=== PATIENT | female | born 1950 | race Caucasian/White ===

== ENCOUNTER 2019-11-16 01:11 | Day surgery (SDC) | payer MEDICARE, SELFPAY ==
[2019-11-13 13:35] VITALS: BMI 42.6
--- NOTE | 2019-11-15 11:18 | WPDANESEPP ---
Anes - Eval Pre Procedure Procedure: Operation Date: 11/16/19 07:30 Proposed Procedures p Esophagogastroduodenoscopy & Screening Colonoscopy - Rajiv Nails MD Date/Time: 11/15/19 11:18 Pre Op Diagnosis: Hx Colon Polyps/ Gerd Patient Data Age: 69 Gender: F Height: 1.61 m Weight: 111 kg Allergies Allergy/AdvReac Type Severity Reaction Status Date / Time lisinopril Allergy Severe COUGH Verified 11/13/19 13:24 MARIXA Inhibitors Allergy Unknown cough Verified 11/13/19 13:24 Penicillins Allergy Unknown Skin Verified 11/13/19 13:24 Reaction Home Medications Medication Instructions Recorded Confirmed Type levothyroxine 50 mcg tablet 50 mcg PO DAILY #90 tablet 06/08/19 11/13/19 Rx cholecalciferol (vitamin D3) 1,250 50,000 unit PO WEEKLY 07/17/19 11/13/19 History mcg (50,000 unit) capsule hydrocodone 5 mg-acetaminophen 325 1 tablet PO Q8H PRN 07/17/19 11/13/19 History mg tablet losartan 25 mg tablet 25 mg PO DAILY 07/17/19 11/13/19 History meloxicam 15 mg tablet 15 mg PO DAILY 07/17/19 11/13/19 History pantoprazole 40 mg tablet,delayed 40 mg PO QAM 07/17/19 11/13/19 History release Glucosamine Sulf-Chondroitin 1 tab-cap PO DAILY 11/13/19 11/13/19 History ascorbic acid (vitamin C) 500 mg PO DAILY 11/13/19 11/13/19 History atenolol-chlorthalidone 0.5 tablet PO DAILY 11/13/19 11/13/19 History cholecalciferol (vitamin D3) 50 mcg PO DAILY 11/13/19 11/13/19 History [Vitamin D3] krill oil 500 mg PO DAILY 11/13/19 11/13/19 History qyhmzhmz-xmb-XW-lycopen-lutein 1 tablet PO DAILY 11/13/19 11/13/19 History [Complete MV Adult 50 Plus] pyridoxine (vitamin B6) 100 mg PO DAILY 11/13/19 11/13/19 History Patient hx anesthesia problems: post op nausea/vomiting Family hx anesthesia problems: none PMFSH Past Medical History Medical History Alcohol use Arthritis Back pain Bronchitis Cervical cancer Former smoker GERD (gastroesophageal reflux disease) HTN (hypertension) Kidney stone Opiate use Osteoporosis Post-operative nausea and vomiting Rectal polyp UTI (urinary tract infection) Surgical History Surgical History H/O arthroscopy of shoulder (~2006) History of bilateral knee replacement History of hysterectomy (~1989) History of knee replacement (~2015) History of tubal ligation (~1983) Family History Family History Grandparent Diabetes mellitus Cerebrovascular accident Mother Hypertension Sibling Family history of gastrointestinal disorder Family history of malignant neoplasm of cervix Family history of malignant neoplasm of breast in first degree relative Other Family history of malignant neoplasm of esophagus Family history of malignant neoplasm of uterus Social History Social History Smoking status: Former smoker Smoking end date: 08/05/75 Alcohol intake: current Exam Day of Procedure 11/15/19 11:18
[2019-11-16 06:43] VITALS: BP 151/76; PULSE 62; RESP 20; TEMP 36.9; O2SAT 98
[2019-11-16] MEDS: LACTATED RINGERS 1,000 ML 150 ML IV CONT (07:15)
--- NOTE | 2019-11-16 07:19 | WPDANESEFPP ---
Anes - Eval Final PreProcedure Day of Procedure 11/16/19 07:19 Patient weight: morbidly obese Heart: regular rate and rhythm Lungs: clear to auscultation Airway: Mallampati scale class II Neurological: alert and oriented Last oral intake: >/= 8 hours ASA classification: III Emergent: no Anesthetic plan: proceed Anesthesia type and monitoring: general GIVS and standard monitoring Informed Consent: The patient's anesthetic plan and its attendant risks and benefits were discussed with the patient/family/POA. Questions were solicited and answers provided to the satisfaction of the patient/family/POA.
--- NOTE | 2019-11-16 07:52 | WPDGICN ---
Assessment and Plan Additional Plan this is a 69-year-old white female patient seen in evaluation at the request of Dr. richard diaz. Patient has complaints of ongoing substernal chest pain. She describes burning pain after eating almost all foods. She has been treated with Protonix 40 mg p.o. daily for at least 5 years. Five years ago had an esophageal web requiring villous patient. She is known to have acid reflux since that time. Currently patient denies dysphagia weight loss or bleeding. Family history noncontributory. Because of her age screening colonoscopy is advised she does have a prior history of colon polyps. Current we states her weight appetite bowel movements are normal she denies any blood in her stools. She denies abdominal pain. Past medical history is significant for hysterectomy, knee replacement, tubal ligation. She has been treated for hypertension. Medications include a tunnel, vitamin D3, glucosamine, hydrocortisone, losartan, meloxicam, and pantoprazole 40 mg p.o. daily. Allergy reported Srinivas inhibitors, lisinopril, penicillin. Physical exam reveals her to be alert. Vital signs stable. HEENT exam unremarkable. Lungs are clear to auscultation and percussion. Heart is without murmur or extra sounds. Abdominal exam bowel sounds are present soft nontender with no organomegaly. Digital external rectal exam normal. Laboratory tests reveal white count 6.1, hemoglobin 11.3, and hematocrit 34.5, MCV 90.1. Impression 1. Anemia. Etiology unclear. Plan is for EGD. 2. Heartburn consistent with GE reflux disease. Poorly responsive to proton pump inhibitor. Plan is to evaluate with EGD. PPI dose may need to be increased. 3. Personal history of colon polyps. For this reason surveillance colonoscopy advised. GI Consult Note Consult date/time: 11/16/19 07:52 HPI: Mckenzie Walters is a 69 year old female [facility] Past Medical History Medical History Alcohol use Arthritis Back pain Bronchitis Cervical cancer Former smoker GERD (gastroesophageal reflux disease) HTN (hypertension) Kidney stone Opiate use Osteoporosis Post-operative nausea and vomiting Rectal polyp UTI (urinary tract infection) Surgical History Surgical History H/O arthroscopy of shoulder (~2006) History of bilateral knee replacement History of hysterectomy (~1989) History of knee replacement (~2015) History of tubal ligation (~1983) Family History Family History Grandparent Diabetes mellitus Cerebrovascular accident Mother Hypertension Sibling Family history of gastrointestinal disorder Family history of malignant neoplasm of cervix Family history of malignant neoplasm of breast in first degree relative Other Family history of malignant neoplasm of esophagus Family history of malignant neoplasm of uterus Social History Social History Smoking status: Former smoker Smoking end date: 08/05/75 Alcohol intake: current Meds Home Medications and Allergies Home Medications Medication Instructions Recorded Confirmed Type levothyroxine 50 mcg tablet 50 mcg PO DAILY #90 tablet 06/08/19 11/16/19 Rx cholecalciferol (vitamin D3) 1,250 50,000 unit PO WEEKLY 07/17/19 11/16/19 History mcg (50,000 unit) capsule hydrocodone 5 mg-acetaminophen 325 1 tablet PO Q8H PRN 07/17/19 11/16/19 History mg tablet losartan 25 mg tablet 25 mg PO DAILY 07/17/19 11/16/19 History meloxicam 15 mg tablet 15 mg PO DAILY 07/17/19 11/16/19 History pantoprazole 40 mg tablet,delayed 40 mg PO QAM 07/17/19 11/16/19 History release Glucosamine Sulf-Chondroitin 1 tab-cap PO DAILY 11/13/19 11/16/19 History ascorbic acid (vitamin C) 500 mg PO DAILY 11/13/19 11/16/19 History atenolol-chlorthalidone 0.5 ta
[2019-11-16] MEDS: BENZOCAINE (*SP) 60 ML SPRAY CAN (HURRICAINE) 1 SPRAY MUCOUS MEM (08:08)
[2019-11-16 08:31] VITALS: BP 125/58; PULSE 62; RESP 19; O2SAT 96
[2019-11-16 08:41] VITALS: BP 121/65; PULSE 61; RESP 18; O2SAT 100
[2019-11-16 08:52] VITALS: BP 145/74; PULSE 60; RESP 14; O2SAT 98
== END 2019-11-16 10:06 | disposition home or self-care (01) ==
PROVIDERS: PCP Family Medicine; Visit Provider Internal Medicine Gastroenterology
PROC: 0DJ08ZZ Inspection of Upper Intestinal Tract, Via Natural or Artificial Opening Endoscopic (ICD-10-PCS; CPT 43235; principal; 2019-11-16 07:30)
DX: K21.0 Gastro-esophageal reflux disease with esophagitis (principal); K22.10 Ulcer of esophagus without bleeding; K44.9 Diaphragmatic hernia without obstruction or gangrene; Z12.11 Encounter for screening for malignant neoplasm of colon; K64.8 Other hemorrhoids; Z86.010 Personal history of colon polyps; I10 Essential (primary) hypertension; D64.9 Anemia, unspecified; M81.0 Age-related osteoporosis without current pathological fracture; M19.90 Unspecified osteoarthritis, unspecified site; Z85.41 Personal history of malignant neoplasm of cervix uteri; Z79.891 Long term (current) use of opiate analgesic; Z87.891 Personal history of nicotine dependence
CPT/HCPCS: 43239; G0105; 87081; J2704; J3370; J7120

== ENCOUNTER 2022-06-12 10:40 | Emergency (ER) | payer MEDICARE, SELFPAY ==
[2022-06-12 10:51] VITALS: BP 132/76; PULSE 69; RESP 16; TEMP 37.2; O2SAT 98
--- NOTE | 2022-06-12 10:57 | ED.BACK ---
HPI - Back Pain/Injury General Chief Complaint: Back Pain/Injury Stated Complaint: neck/ shoulder and upper back pain Time Seen by Provider: 06/12/22 10:42 Source: patient Mode of arrival: ambulatory Limitations: no limitations History of Present Illness HPI Narrative: Mrs. Walters is a 72-year-old female patient presenting to clinic today with complaints of neck, shoulder, and upper back pain times 2-3 week.. She reports she started out with some neck pain, right ear and right jaw discomfort. States that this did move to the left side and she complains of pain and going up into her head and across her back. She reports the pain is dull aching and painful with movement. No fever or chills. No known injury Related Data Home Medications Medication Instructions Recorded Confirmed Glucosamine Sulf-Chondroitin 1 tab-cap PO DAILY 11/13/19 06/04/22 ascorbic acid (vitamin C) 500 mg 500 mg PO DAILY 11/13/19 06/04/22 tablet krill oil 500 mg PO DAILY 11/13/19 06/04/22 rdsyuuxv-kxo-jtcbk acid 0.4 1 tablet PO DAILY 11/13/19 06/04/22 mg-lycopene 300 mcg-lutein 250 mcg tablet (Complete Multivitamin Adult 50 Plus) pyridoxine (vitamin B6) 100 mg 100 mg PO DAILY 11/13/19 06/04/22 tablet cholecalciferol (vitamin D3) 50 50 mcg PO DAILY 11/22/20 06/04/22 mcg (2,000 unit) capsule acetaminophen 650 mg 650 mg PO Q12H 06/04/22 06/04/22 tablet,extended release (Pain Relief (acetaminophen)) ergocalciferol (vitamin D2) 1,250 1,250 mcg PO .COMPLEX 06/04/22 06/04/22 mcg (50,000 unit) capsule ibandronate 150 mg tablet 150 mg PO MONTHLY 06/04/22 06/04/22 Allergies Allergy/AdvReac Type Severity Reaction Status Date / Time lisinopril Allergy Severe COUGH Verified 06/04/22 11:19 MARIXA Inhibitors Allergy Unknown cough Verified 06/04/22 11:19 Penicillins Allergy Unknown Skin Verified 06/04/22 11:19 Reaction Review of Systems Review of Systems: Pertinent positives per HPI. Patient denies any fever, chills, rash, headache, visual changes, dizziness, cough, runny nose, sore throat, shortness of breath, chest pain, palpitations, nausea, vomiting, diarrhea, constipation, abdominal pain, or any urinary issues. [facility] Past Medical History Medical History Alcohol use Arthritis Back pain Bronchitis Cervical cancer Former smoker GERD (gastroesophageal reflux disease) HTN (hypertension) Kidney stone Opiate use Osteoporosis Post-operative nausea and vomiting Rectal polyp UTI (urinary tract infection) Surgical History Surgical History H/O arthroscopy of shoulder (~2006) left, Dr Bearden History of bilateral knee replacement rt 08/2015, lt 02/2016 History of hysterectomy (~1989) History of left breast biopsy (~12/2004) History of total right hip arthroplasty (~03/2019) History of tubal ligation (~1983) Family History Family History Grandparent Diabetes mellitus Cerebrovascular accident Mother Hypertension Sibling Family history of gastrointestinal disorder Family history of malignant neoplasm of cervix Family history of malignant neoplasm of breast in first degree relative Other Family history of malignant neoplasm of esophagus Family history of malignant neoplasm of uterus Social History Social History Social History: caffeine-daily coffee Smoking status: Former smoker Smoking end date: 08/05/75 Alcohol intake: current Alcohol use details: occasionally- wine Comments At the time of my signature, I reviewed and agree with the nursing past medical, surgical, social, and family history. There is no relevant family history pertinent to the patient complaint. Exam Narrative: General: Well-developed, well nourished, in no apparent distress Head: Normocep
== END 2022-06-12 11:28 | disposition home or self-care (01) ==
PROVIDERS: Emergency Provider Nurse Practitioner Family; PCP Emergency Medicine
DX: S16.1XXA Strain of muscle, fascia and tendon at neck level, initial encounter (principal); X58.XXXA Exposure to other specified factors, initial encounter; M19.90 Unspecified osteoarthritis, unspecified site; Z87.891 Personal history of nicotine dependence; K21.9 Gastro-esophageal reflux disease without esophagitis; I10 Essential (primary) hypertension; M81.0 Age-related osteoporosis without current pathological fracture; Z96.653 Presence of artificial knee joint, bilateral; Z85.41 Personal history of malignant neoplasm of cervix uteri
CPT/HCPCS: 99213; G0463

== ENCOUNTER 2022-06-25 11:04 | Outpatient (CLI) | payer MEDICARE, SELFPAY ==
--- NOTE | ~2022-06-25 | US_ITS ---
EXAMINATION:US venous doppler LE BI INDICATION:Lower extremity edema TECHNIQUE: Multiple grayscale, color flow and Doppler images of the right and left lower extremity de ep venous systems were obtained and reviewed. COMPARISON:Ultrasound dated 11/17/2018 FINDINGS: The common femoral, superficial femoral and popliteal veins demonstrate normal respiratory variation, augmentation and compressibility. Color flow is also seen within the posterior tibial, pe roneal, greater saphenous and profunda veins. IMPRESSION: 1: No lower extremity deep venous thrombosis. Reviewed, dictated and finalized at location B. [facility] MD
== END 2022-06-25 11:05 | disposition home or self-care (01) ==
PROVIDERS: PCP Emergency Medicine; Visit Provider Physician Assistant
DX: R60.0 Localized edema (principal)
CPT/HCPCS: 93970

== ENCOUNTER → 2023-02-27 14:58 | Outpatient (CLI) | payer MEDICARE, SELFPAY ==
--- NOTE | ~2023-02-27 | XR_ITS ---
XR hip LT 2V w AP pelvis DATE: 02/27/2023 15:11 INDICATION: Left hip pain TECHNIQUE: AP pelvis. AP and lateral views of left hip COMPARISON: None FINDINGS: There is rotatory levoscoliosis and severe degenerative disc disease throughout the include d lumbar and lumbosacral spine from L2-3 through L5-S1. Status post right total hip arthroplasty. Normal alignment at the pubic symphysis and sacroiliac joints. No pelvic fracture or bone destruction is detected. There is mild joint space narrowing and spurring of the left hip joint. No fracture or dislocation, a vascular necrosis or bone destruction of the left hip. IMPRESSION: Mild left hip osteoarthritis Status post right total hip arthroplasty Rotatory levoscoliosis and multilevel severe degenerative disc disease of the lumbar spine Reviewed, dictated and finalized at location B. IMPRESSION: Mild left hip osteoarthritis Status post right total hip arthroplasty Rotatory levoscoliosis and multilevel severe degenerative disc disease of the l umbar spine
== END ==
PROVIDERS: PCP Emergency Medicine; Visit Provider Nurse Practitioner Family
DX: M54.9 Dorsalgia, unspecified (principal); M16.12 Unilateral primary osteoarthritis, left hip
CPT/HCPCS: 73502

== ENCOUNTER → 2023-03-01 10:55 | Outpatient (CLI) | payer MEDICARE, SELFPAY ==
--- NOTE | ~2023-03-01 | US_ITS ---
US renal BI 03/01/2023 11:23 Procedure: Realtime transabdominal ultrasound of the kidneys and bladder. Indication: Stones Comparison: 04/03/2018 Findings: Renal echotexture is normal bilaterally without hydronephrosis. In the left kidney there is an echogenic focus measuring 11 mm possibly in the renal pelvis or ureter. Recommend correlation wit h CT without and with contrast. The right kidney measures 10.4 cm and left kidney measures 9.5 cm. B ladder within normal limits. Impression: 1: 11 mm echogenic focus possibly in the left renal pelvis or proximal ureter. Cannot exclude stone o r mass. Recommend correlation with CT abdomen without and with contrast. Reviewed, dictated and finalized at location A. Impression: 1: 11 mm echogenic focus possibly in the left renal pelvis or proximal ureter. Cannot exclude stone or mass. Recommend correlation with CT abdomen without and with contrast.
== END ==
PROVIDERS: PCP Emergency Medicine; Visit Provider Nurse Practitioner Family
DX: M54.9 Dorsalgia, unspecified (principal); M79.605 Pain in left leg
CPT/HCPCS: 76775

== ENCOUNTER → 2023-03-04 12:59 | Outpatient (CLI) | payer MEDICARE, SELFPAY ==
--- NOTE | ~2023-03-04 | CT_ITS ---
EXAMINATION: CT abdomen pelvis wo/w con DATE: 03/04/2023 13:59 INDICATION: Nephrolithiasis TECHNIQUE: Computed tomography (CT) of the abdomen and pelvis was performed without intravenous contr ast. CT of the abdomen and pelvis was then performed with a total of 130 mL Omnipaque-350 intravenous contrast using a double-bolus technique for simultaneous opacification of the renal parenchyma and r enal collecting system. Automated exposure control and iterative reconstruction technique were employ ed. The dose-length product was 1836.38 mGy-cm. COMPARISON: None FINDINGS: Mild discoid atelectasis at the lingula. Moderate-sized sliding-type hiatal hernia. Heart size is nor mal. No pericardial or pleural effusion. Liver, gallbladder, spleen, pancreas and bilateral adrenal g lands are normal. 10 mm cyst at the upper pole of the right kidney. Multiple nonobstructing stones at the lower pole of the left kidney the largest measuring up to 8 mm. There is focal cortical scarring at the lower pole of the left kidney consistent with prior infection or infarction. Portions of the bilateral distal ureters remain unopacified on the post contrast imaging. No urothelial irregularitie s along the contrast opacified portions of the bilateral renal collecting systems and ureters. Bladde r is normal. Bowels are unremarkable. The uterus is not identified and has likely been surgically res ected. No free intraperitoneal gas or fluid. No pathologically enlarged abdominal or pelvic lymphaden opathy. Mild lumbar levoscoliosis with severe lumbar and lower thoracic spondylosis. Right total hip arthroplasty. IMPRESSION: 1. Nonobstructing left nephrolithiasis. Reviewed, dictated and finalized at location B.
[2023-03-04 13:25] LABS: Estimated Glomerular Filt Rate 37
== END ==
PROVIDERS: PCP Emergency Medicine; Visit Provider Nurse Practitioner Family
DX: N20.0 Calculus of kidney (principal); M54.9 Dorsalgia, unspecified; M79.605 Pain in left leg
CPT/HCPCS: 74178; Q9967

== ENCOUNTER 2023-03-07 10:02 | Outpatient (CLI) | payer MEDICARE, SELFPAY ==
--- NOTE | ~2023-03-07 | XR_ITS ---
EXAMINATION: XR abdomen/kub 1V DATE: 03/07/2023 10:31 INDICATION: Calcium kidney stone. TECHNIQUE: A supine view of the abdomen on 2 radiographs was obtained. COMPARISON: CT abdomen and pelvis 03/04/2023 FINDINGS: There are no dilated loops of bowel. There is a cluster of greater than 20 stones in left k idney measuring up to at least 3 mm. There are phleboliths in the pelvis. There is a total right hip arthroplasty. IMPRESSION: 1. Left kidney stones. Reviewed, dictated and finalized at location L. IMPRESSION: 1. Left kidney stones.
== END 2023-03-07 10:03 | disposition home or self-care (01) ==
PROVIDERS: PCP Emergency Medicine; Visit Provider Urology
DX: N20.0 Calculus of kidney (principal)
CPT/HCPCS: 74018

== ENCOUNTER 2023-03-14 11:37 | Outpatient (CLI) | payer MEDICARE, SELFPAY ==
--- NOTE | 2023-03-14 11:30 | ECG_ITS ---
Measurements Intervals [place] Rate: 62 P: 61 CT: 164 QRS: 19 QRSD: 101 T: 45 QT: 416 QTc: 424 Interpretive Statements SINUS RHYTHM NORMAL ECG NO PREVIOUS ECG AVAILABLE FOR COMPARISON Electronically Signed On 03-14-2023 13:08:18 CDT by Erasmo Jamison M.D.
[2023-03-14 12:14] LABS: Appearance Urine Clear (Clear); Bilirubin Urine Negative (Negative); Blood Urine Negative (Negative); Color Urine Yellow (Yellow); Glucose Urine UA Negative (Negative); Ketones Urine Negative (Negative); Leukocyte Esterase Ur Negative LEU/UL (Negative); Nitrate Urine Negative (Negative); Protein Urine Negative (Negative); Specific Grav Ur 1.013 (1.001-1.035); Urobilinogen Urine 0.2 mg/dL (<2.0); pH Urine 6.5 (5.0-9.0)
[2023-03-14 12:23] LABS: INR 0.9; Partial Thromboplastin Time 24.5 SECONDS (22.3-36.8); Prothrombin Time 12.6 Seconds (11.1-14.7)
[2023-03-14 12:25] LABS: Anion Gap 5 mmol/L (8-16); Blood Urea Nitrogen 23 mg/dL (7-17); Calcium 9.1 mg/dL (8.4-10.2); Carbon Dioxide 32 mmol/L (22-30); Chloride 98 mmol/L (98-107); Estimated Glomerular Filt Rate 44; Glucose 95 mg/dL (65-110); Potassium 3.5 mmol/L (3.4-5.0); Sodium 135 mmol/L (137-145)
[2023-03-14 12:30] LABS: Add Urine Microscopic? NO
== END 2023-03-14 11:38 | disposition home or self-care (01) ==
PROVIDERS: Anesthesiology; PCP Emergency Medicine; Visit Provider Urology
DX: N20.0 Calculus of kidney (principal); I12.9 Hypertensive chronic kidney disease with stage 1 through stage 4 chronic kidney disease, or unspecified chronic kidney disease; N18.9 Chronic kidney disease, unspecified; Z01.818 Encounter for other preprocedural examination
CPT/HCPCS: 36415; 80048; 81003; 85610; 85730; 93005

== ENCOUNTER 2023-04-03 10:35 | Outpatient (CLI) | payer MEDICARE, SELFPAY ==
[2023-04-03 11:25] LABS: Partial Thromboplastin Time 27.5 SECONDS (22.3-36.8); Prothrombin Time 13.1 Seconds (11.1-14.7)
== END 2023-04-03 10:36 | disposition home or self-care (01) ==
LOC: ANHSURGERY 10:39
PROVIDERS: PCP Emergency Medicine; Visit Provider Urology
DX: N20.1 Calculus of ureter (principal); Z01.818 Encounter for other preprocedural examination
CPT/HCPCS: 36415; 85610; 85730

== ENCOUNTER 2023-04-05 00:50 | Day surgery (SDC) | payer MEDICARE, SELFPAY ==
[2023-03-14 09:33] VITALS: BMI 39.6
--- NOTE | 2023-03-14 09:50 | PC.NURSE ---
Report to the Outpatient Waiting Room, entrance under the green pavilion located off [facility], at time _0900_ on date _03/14/23_. Planned Procedure Time: _1100_. Time changes happen often and if your time is changed the preop area will call you the afternoon before. - You and your visitor will be asked to self-screen and do not enter if you have any COVID symptoms. - A mask is optional within the hospital at this time. Patients may have clear liquids (water, carbonated beverages, clear teas, apple juice) until 3 hours prior to surgery (0800 AM) with a maximum of 20 ounces. - No food from midnight until time of surgery - Infants may have breast milk until 4 hours before surgery, infant formula 6 hours prior to surgery. - Children will be allowed to drink immediately following surgery. If applicable, please bring a bottle or sippy cup to assist with drinking. Juice, water, soda, and popsicles are readily available. For infants on formula, please bring formula the day of surgery. Pacifiers are allowed. Take the following medications with a SIP of water the morning of surgery: _LEVOTHYROXINE, PAIN MED IF NEEDED__ DO NOT STOP ANY OF YOUR OTHER PRESCRIPTION MEDICATIONS PRIOR TO SURGERY ?EXCEPT THE FOLLOWING Medications to discontinue per physician N/A Date to take last dose Please no make-up, nail vietnamese, hairspray, perfume, deodorant, or body powder the day of surgery. No jewelry (including any body piercings) or valuables the day of surgery, leave them at home. Please take a shower or bath the night before, or the morning of, surgery with an antibacterial soap. Wear comfortable, loose fitting clothing. Children are encouraged to wear pajamas. - Jewelry must be removed prior to entering the operating room. Rings and piercings that are not removed may be cut off. - The hospital will not accept responsibility for valuables. - Please leave all valuables, including medications, at home the day of surgery. If you are going home after surgery, a licensed residential driver must drive you home. - NO public transportation without another adult if you receive anesthesia. - We recommend that an adult stay with you for 24 hours following discharge. - We also recommend that you do not drive, make important decision, drink alcoholic beverages, or take any drugs that were not prescribed by your health care provider for at least 24 hours after your discharge time. For Pediatric surgeries, we recommend two adults accompany the child home. Follow any additional instructions given to you from your surgeon. If you or anyone in your household have experienced Covid symptoms in the past week, please notify your surgeon or the nurse liaison at the phone number below for possible testing. Telephone instructions given to _PATIENT_and asked if any additional questions and then verbalized understanding. Patient advised to call surgeon office or pre surgery nurse liaison [phone] if any additional questions.
--- NOTE | 2023-03-25 11:53 | PC.NURSE ---
Addendum entered by Ailyn Frazier RN 03/25/23 11:55: RESCHEDULED FROM 03/15/23 FOR + URINE CULTURE. NEW DATE/TIME GIVEN TO PATIENT. ALL PRE-OP INSTRUCTIONS REVIEWED, SHE RELAYS UNDERSTANDING. ANTIBIOTICS FINISHED, NEW URINE CULTURE COMPLETED IN MD OFFICE 03/25/23. Original Note: Report to the Outpatient Waiting Room, entrance under the green pavilion located off [facility], at time __6:30AM on date __04/05/23 . Planned Procedure Time: __8:30AM . Time changes happen often and if your time is changed the preop area will call you the afternoon before. - You and your visitor will be asked to self-screen and do not enter if you have any COVID symptoms. - A mask is optional within the hospital at this time. Patients may have clear liquids (water, carbonated beverages, clear teas, apple juice) until 3 hours prior to surgery with a maximum of 20 ounces. - No food from midnight until time of surgery Take the following medications with a SIP of water the morning of surgery: ___LEVOTHYROXINE, HYDROCODONE NEEDED DO NOT STOP ANY OF YOUR OTHER PRESCRIPTION MEDICATIONS PRIOR TO SURGERY ?EXCEPT THE FOLLOWING Medications to discontinue per physician __HOLD ALL VITAMINS/SUPPLEMENTS 7 DAYS PRE-OP PER DR JIMENEZ (PER PATIENT) Date to take last dose___03/29/23 Please no make-up, nail new zealander, hairspray, perfume, deodorant, or body powder the day of surgery. No jewelry (including any body piercings) or valuables the day of surgery, leave them at home. Please take a shower or bath the night before, or the morning of, surgery with an antibacterial soap. Wear comfortable, loose fitting clothing. Children are encouraged to wear pajamas. - Jewelry must be removed prior to entering the operating room. Rings and piercings that are not removed may be cut off. - The hospital will not accept responsibility for valuables. - Please leave all valuables, including medications, at home the day of surgery. If you are going home after surgery, a licensed truck driver salesperson must drive you home. - NO public transportation without another adult if you receive anesthesia. - We recommend that an adult stay with you for 24 hours following discharge. - We also recommend that you do not drive, make important decision, drink alcoholic beverages, or take any drugs that were not prescribed by your health care provider for at least 24 hours after your discharge time. Follow any additional instructions given to you from your surgeon. If you or anyone in your household have experienced Covid symptoms in the past week, please notify your surgeon or the nurse liaison at the phone number below for possible testing. Telephone instructions given to __PATIENT and asked if any additional questions and then verbalized understanding. Patient advised to call surgeon office or pre surgery nurse liaison [phone] if any additional questions.
--- NOTE | 2023-04-04 10:00 | WPDANESEPPF ---
Anes - Initial Pre Proc Eval Procedure: Operation Date: 04/05/23 08:30 Proposed Procedures p Left Extracorporeal Shock Wave Lithotripsy - Larry Foster MD Date/Time: 04/04/23 10:00 Surgeon: Larry Foster MD Pre Op Diagnosis: Lt Ureteral Stone Patient Data Age: 72 Gender: F Height: 1.61 m Weight: 103.18 kg Allergies Allergy/AdvReac Type Severity Reaction Status Date / Time lisinopril Allergy Severe COUGH Verified 03/25/23 11:43 MARIXA Inhibitors Allergy Unknown cough Verified 03/25/23 11:43 Penicillins Allergy Unknown Skin Verified 03/25/23 11:43 Reaction Home Medications Medication Instructions Recorded Confirmed Type pyridoxine (vitamin B6) 100 mg 100 mg PO DAILY 11/13/19 03/25/23 History tablet cholecalciferol (vitamin D3) 50 50 mcg PO DAILY 11/22/20 03/25/23 History mcg (2,000 unit) capsule hydrocodone 5 mg-acetaminophen 325 1 tablet PO Q6H PRN pain #28 tabs 02/15/22 03/25/23 Rx mg tablet atenolol 50 mg-chlorthalidone 25 See Rx Instructions .Route 03/01/22 03/25/23 Rx mg tablet .COMPLEX #45 tabs pantoprazole 40 mg tablet,delayed See Rx Instructions .Route 05/21/22 03/25/23 Rx release .COMPLEX #90 tabs levothyroxine 50 mcg tablet See Rx Instructions .Route 05/24/22 03/25/23 Rx .COMPLEX #90 tabs acetaminophen 650 mg 650 mg PO Q12H 06/04/22 03/25/23 History tablet,extended release (Pain Relief (acetaminophen)) ergocalciferol (vitamin D2) 1,250 1,250 mcg PO .COMPLEX 06/04/22 03/25/23 History mcg (50,000 unit) capsule ibandronate 150 mg tablet 150 mg PO MONTHLY 06/04/22 03/25/23 History losartan 25 mg tablet See Rx Instructions .Route 07/23/22 03/25/23 Rx .COMPLEX #90 tabs krill 500 mg-omega-3 150 mg-dha 45 1 cap PO DAILY 03/25/23 03/25/23 History mg-epa 75 [id number]-pwrrl capsule (krill oil) Patient hx anesthesia problems: none Family hx anesthesia problems: none Results Review: All pre-operative results and documents have been reviewed as part of the pre-operative evaluation. [facility] Past Medical History Medical History (Updated 03/01/23 @ 08:46 by Teri Knox, [employer]) Alcohol use Arthritis Back pain Bronchitis Cervical cancer Former smoker GERD (gastroesophageal reflux disease) HTN (hypertension) Kidney stone Opiate use Osteoporosis Post-operative nausea and vomiting Rectal polyp UTI (urinary tract infection) Surgical History Surgical History H/O arthroscopy of shoulder (~2006) left, Dr Bearden History of bilateral knee replacement rt 08/2015, lt 02/2016 History of hysterectomy (~1989) History of left breast biopsy (~12/2004) History of total right hip arthroplasty (~03/2019) History of tubal ligation (~1983) Family History Family History Grandparent Diabetes mellitus Cerebrovascular accident Mother Hypertension Sibling Family history of gastrointestinal disorder Family history of malignant neoplasm of cervix Family history of malignant neoplasm of breast in first degree relative Other Family history of malignant neoplasm of esophagus Family history of malignant neoplasm of uterus Social History Social History Social History: caffeine-daily coffee Smoking packs per day: 1 Smoking cigarettes per day: 20.0 Years smoked: 7 Smoking pack-years: 7.00 Smoking status: Former smoker Tobacco type: cigarettes Second hand tobacco smoke exposure: No Smoking end date: 08/05/75 Alcohol intake: current Alcohol use details: VERY RARE -2-3XYR Substance use: never Substance use type: does not use Lack of Transportation: No Lack of Food: Never True Current Housing: I Have Housing Concerned About Future Housing: No Difficulty Paying Gas/Electric Bills: No Difficulty Paying for Meds: No Currently Unemployed:
[2023-04-05] VITALS (9 sets, daily range): BP systolic 123–150; BP diastolic 58–84; PULSE 50–97; RESP 13–18; TEMP 36.4–37; O2SAT 99–100
--- NOTE | ~2023-04-05 | XR_ITS ---
Supine and upright views of the abdomen Clinical history: Lithotripsy COMPARISON: 03/07/2023 Findings: Bowel gas pattern is nonspecific. No evidence for obstruction or free air. There are multip le small stones at the left lower renal pole. Stable degenerative changes of the spine are noted. Rig ht hip arthroplasty present. Impression: Left nephrolithiasis, essentially unchanged. Reviewed, dictated and finalized at location . Impression: Left nephrolithiasis, essentially unchanged.
--- NOTE | 2023-04-05 07:23 | WPDHPUPDATE1 ---
History and Physical Update Update Date/Time: 04/05/23 07:23 History and Physical has been reviewed, including an updated exam of the patient. There are NO changes in the patient's condition. Risks, benefits, and alternatives have been discussed and questions answered. Patient agrees to proceed with procedure. Proceed with left renal eswl
[2023-04-05] MEDS: LACTATED RINGERS 1,000 ML 30 ML IV CONT (07:38)
[2023-04-05] MEDS: ceFAZolin 2 GM/D5W 50 ML 2 GM/50 ML BAG IVPB (08:34)
--- NOTE | 2023-04-05 09:25 | P.OP_ITS ---
Procedure Note - Detailed Date of Procedure 04/05/23 Pre-op Diagnosis Lt renal Stone Post-op Diagnosis Same Procedure Performed Lithotripsy of left renal calculus Surgeon Larry Foster MD Anesthesia General Description of Procedure Patient is taken to the operative suite correctly identified. Once anesthesia was obtained the stone was localized in both planes. Two thousand five hundred shocks were given to the stone. Patient tolerated procedure well without complications and was taken recovery stable condition. She will follow-up in 7- 10 days with KUB. This completes dictation this patient. Please send a copy this op note to my office Estimated Blood Loss 0 Drains No Packing No Pathology None sent Complications No immediate complications Condition Stable Disposition PACU
== END 2023-04-05 11:41 | disposition home or self-care (01) ==
PROVIDERS: PCP Emergency Medicine; Visit Provider Urology
PROC: (CPT 50590; principal; 2023-04-05 08:30)
DX: N20.0 Calculus of kidney (principal); I10 Essential (primary) hypertension; K21.9 Gastro-esophageal reflux disease without esophagitis; M81.0 Age-related osteoporosis without current pathological fracture; Z79.891 Long term (current) use of opiate analgesic; Z85.41 Personal history of malignant neoplasm of cervix uteri; Z87.891 Personal history of nicotine dependence; E66.9 Obesity, unspecified; Z68.41 Body mass index [BMI] 40.0-44.9, adult
CPT/HCPCS: 50590; 36415; 74018; 80048; 81003; 85610; 85730; 93005; J0690; J1100; J2405; J2704; J7120

== ENCOUNTER 2023-04-11 11:45 | Outpatient (CLI) | payer MEDICARE, SELFPAY ==
--- NOTE | ~2023-04-11 | XR_ITS ---
Supine and upright views of the abdomen Clinical history: Renal stone COMPARISON: 04/05/2023 Findings: Bowel gas pattern is nonspecific. No evidence for obstruction or free air. Multiple left re nal stones are unchanged from prior exam. Levoscoliosis of the lumbar spine present, with degenerativ e spondylitic changes. Right hip arthroplasty is in place. Impression: Multiple left renal stones, essentially unchanged. Reviewed, dictated and finalized at location . Impression: Multiple left renal stones, essentially unchanged.
== END 2023-04-11 11:46 | disposition home or self-care (01) ==
PROVIDERS: PCP Emergency Medicine; Visit Provider Urology
DX: N20.0 Calculus of kidney (principal)
CPT/HCPCS: 74018

== ENCOUNTER 2023-04-25 11:23 | Outpatient (CLI) | payer MEDICARE, SELFPAY ==
--- NOTE | ~2023-04-25 | XR_ITS ---
XR abdomen/kub 1V DATE: 04/25/2023 11:42 INDICATION: Calcium kidney stones. Lithotripsy on 04/05/2023 TECHNIQUE: AP views COMPARISON: 04/11/2023 KUB FINDINGS: Numerous small calcifications are again noted overlying the left kidney. There is approximately 2.7 cm length of calcific density overlying the course of the distal left uret er, likely Steinstrasse small lithotripsy calculus fragments. No visceromegaly is evident. The bowel gas pattern is unremarkable without evidence of obstruction. The psoas shadows are intact. Rotatory levoscoliosis and severe multilevel degenerative disc disease of the lumbar spine. Status post right total hip arthroplasty IMPRESSION: Distal left ureteral Steinstrasse Multiple left renal calcified calculi Reviewed, dictated and finalized at Location A. Reviewed, dictated and finalized at location A.
== END 2023-04-25 11:24 | disposition home or self-care (01) ==
PROVIDERS: PCP Emergency Medicine; Visit Provider Urology
DX: N20.0 Calculus of kidney (principal)
CPT/HCPCS: 74018

== ENCOUNTER 2023-05-07 10:32 | Outpatient (CLI) | payer MEDICARE, SELFPAY | END 2023-05-07 10:33 | disposition home or self-care (01) | LOC: ANHSURGERY 10:36 | PROVIDERS: PCP Emergency Medicine; Visit Provider Urology | DX: N20.1 Calculus of ureter (principal); Z01.818 Encounter for other preprocedural examination | CPT/HCPCS: 87086; 87147; 87186 ==

== ENCOUNTER 2023-05-14 01:28 | Day surgery (SDC) | payer MEDICARE, SELFPAY ==
[2023-05-01 13:29] VITALS: BMI 40.6
--- NOTE | 2023-05-01 13:49 | PC.NURSE ---
Report to the Outpatient Waiting Room, entrance under the green pavilion located off [facility], at time __6:00AM on date __05/14/23 . Planned Procedure Time: __7:30AM . Time changes happen often and if your time is changed the preop area will call you the afternoon before. - You and your visitor will be asked to self-screen and do not enter if you have any COVID symptoms. - A mask is optional within the hospital at this time. Patients may have clear liquids (water, carbonated beverages, clear teas, apple juice) until 3 hours prior to surgery with a maximum of 20 ounces. - No food from midnight until time of surgery. Take the following medications with a SIP of water the morning of surgery: ___LEVOTHYROXINE DO NOT STOP ANY OF YOUR OTHER PRESCRIPTION MEDICATIONS PRIOR TO SURGERY ?EXCEPT THE FOLLOWING Medications to discontinue per physician ___HOLD ALL VITAMINS/SUPPLEMENTS 7 DAYS PRE-OP PER DR JIMENEZ____ Date to take last dose___05/07/23 Please no make-up, nail nepali, hairspray, perfume, deodorant, or body powder the day of surgery. No jewelry (including any body piercings) or valuables the day of surgery, leave them at home. Please take a shower or bath the night before, or the morning of, surgery with an antibacterial soap. Wear comfortable, loose fitting clothing. - Jewelry must be removed prior to entering the operating room. Rings and piercings that are not removed may be cut off. - The hospital will not accept responsibility for valuables. - Please leave all valuables, including medications, at home the day of surgery. If you are going home after surgery, a licensed test driver must drive you home. - NO public transportation without another adult if you receive anesthesia. - We recommend that an adult stay with you for 24 hours following discharge. - We also recommend that you do not drive, make important decision, drink alcoholic beverages, or take any drugs that were not prescribed by your health care provider for at least 24 hours after your discharge time. Follow any additional instructions given to you from your surgeon. If you or anyone in your household have experienced Covid symptoms in the past week, please notify your surgeon or the nurse liaison at the phone number below for possible testing. Telephone instructions given to __PATIENT and asked if any additional questions and then verbalized understanding. Patient advised to call surgeon office or pre surgery nurse liaison [phone] if any additional questions.
[2023-05-14] VITALS (7 sets, daily range): BP systolic 128–169; BP diastolic 57–74; PULSE 50–61; RESP 14–20; TEMP 36.4–37.3; O2SAT 98–100
--- NOTE | ~2023-05-14 | XR_ITS ---
EXAMINATION: XR retrograde pyelo w/stent LT DATE: 05/14/2023 09:58 INDICATION: Left internal ureteral stent placement TECHNIQUE: Fluoroscopic images from a left internal ureteral stent placement are submitted for diana swan. 25 seconds of fluoroscopy time. FINDINGS: There is a left double-J internal ureteral stent projecting in expected position, with proximal Herron loop at the level of the renal pelvis and distal loop in the pelvis within the bladder lumen. IMPRESSION: 1. Left internal ureteral stent placement. Please refer to real-time procedural findings for detail s. Reviewed, dictated and finalized at location L. IMPRESSION: 1. Left internal ureteral stent placement. Please refer to real-time procedur al findings for details.
--- NOTE | 2023-05-14 07:19 | WPDHPUPDATE1 ---
History and Physical Update Update Date/Time: 05/14/23 07:19 History and Physical has been reviewed, including an updated exam of the patient. There are NO changes in the patient's condition. Risks, benefits, and alternatives have been discussed and questions answered. Patient agrees to proceed with procedure. Proceed with cysto, left retrograde, left ureteroscopy with stone extraction, possible laser , stent
--- NOTE | 2023-05-14 07:27 | WPDANESEPPF ---
Anes - Initial Pre Proc Eval Procedure: Operation Date: 05/14/23 08:30 Proposed Procedures p Cystoscopy, Left Ureteroscopy, Left Retrograde Pyelogram, Possible Left Stone Extraction, Possible Left Stent Placement, Possible Holmium Laser - Larry Foster MD Date/Time: 05/14/23 07:27 Surgeon: Larry Foster MD Pre Op Diagnosis: left ureteral stone Patient Data Age: 72 Gender: F Height: 1.6 m Weight: 104 kg Allergies Allergy/AdvReac Type Severity Reaction Status Date / Time Penicillins Allergy Unknown Skin Verified 05/01/23 13:24 Reaction, ITCHING lisinopril AdvReac Severe COUGH Verified 05/01/23 13:24 Home Medications Medication Instructions Recorded Confirmed Type pyridoxine (vitamin B6) 100 mg 100 mg PO DAILY 11/13/19 05/01/23 History tablet cholecalciferol (vitamin D3) 50 50 mcg PO DAILY 11/22/20 05/01/23 History mcg (2,000 unit) capsule hydrocodone 5 mg-acetaminophen 325 1 tablet PO Q6H PRN pain #28 tabs 02/15/22 05/01/23 Rx mg tablet acetaminophen 650 mg 650 mg PO Q12H PRN Pain 06/04/22 05/01/23 History tablet,extended release (Pain Relief (acetaminophen)) ergocalciferol (vitamin D2) 1,250 1,250 mcg PO .COMPLEX 06/04/22 05/01/23 History mcg (50,000 unit) capsule ibandronate 150 mg tablet 150 mg PO MONTHLY 06/04/22 05/01/23 History krill 500 mg-omega-3 150 mg-dha 45 1 cap PO DAILY 03/25/23 05/01/23 History mg-epa 75 [id number]-pqbqn capsule (krill oil) atenolol 50 mg-chlorthalidone 25 0.5 tablet PO DAILY 05/01/23 05/01/23 History mg tablet levothyroxine 50 mcg tablet 50 mcg PO QAM 05/01/23 05/01/23 History losartan 25 mg tablet 25 mg PO DAILY 05/01/23 05/01/23 History pantoprazole 40 mg tablet,delayed 40 mg PO DAILY 05/01/23 05/01/23 History release Patient hx anesthesia problems: none Family hx anesthesia problems: none Results Review: All pre-operative results and documents have been reviewed as part of the pre-operative evaluation. [facility] Past Medical History Medical History Alcohol use Arthritis Back pain Bronchitis Cervical cancer Former smoker GERD (gastroesophageal reflux disease) HTN (hypertension) Kidney stone Opiate use Osteoporosis Post-operative nausea and vomiting Rectal polyp UTI (urinary tract infection) Surgical History Surgical History H/O arthroscopy of shoulder (~2006) left, Dr Bearden History of bilateral knee replacement rt 08/2015, lt 02/2016 History of hysterectomy (~1989) History of left breast biopsy (~12/2004) History of total right hip arthroplasty (~03/2019) History of tubal ligation (~1983) Family History Family History Grandparent Diabetes mellitus Cerebrovascular accident Mother Hypertension Sibling Family history of gastrointestinal disorder Family history of malignant neoplasm of cervix Family history of malignant neoplasm of breast in first degree relative Other Family history of malignant neoplasm of esophagus Family history of malignant neoplasm of uterus Social History Social History Social History: caffeine-daily coffee Smoking packs per day: 1 Smoking cigarettes per day: 20.0 Years smoked: 7 Smoking pack-years: 7.00 Smoking status: Former smoker Tobacco type: cigarettes Second hand tobacco smoke exposure: No Smoking end date: 02/03/76 Alcohol intake: current Alcohol use details: VERY RARE -2-3XYR Substance use: never Substance use type: does not use Lack of Transportation: No Lack of Food: Never True Current Housing: I Have Housing Concerned About Future Housing: No Difficulty Paying Gas/Electric Bills: No Difficulty Paying for Meds: No Currently Unemployed: No Education: Associate Degree Difficulty w/ Ch
--- NOTE | 2023-05-14 07:37 | WPDHPUPDATE1 ---
History and Physical Update Update Date/Time: 05/14/23 07:37 History and Physical has been reviewed, including an updated exam of the patient. There are NO changes in the patient's condition. Risks, benefits, and alternatives have been discussed and questions answered. Patient agrees to proceed with procedure. Proceed with cystoscopy, left ureteroscopy, left retrograde pyelogram, possible left stone extraction, possible left stent placement , possible holmium laser.
[2023-05-14] MEDS: LACTATED RINGERS 1,000 ML 30 ML IV CONT (08:00)
[2023-05-14] MEDS: ceFAZolin 2 GM/D5W 50 ML 2 GM/50 ML BAG IVPB (08:58)
[2023-05-14] MEDS: LIDOCAINE HCL 2% GEL UROJET 10 ML PKG MUCOUS MEM (09:09)
--- NOTE | 2023-05-14 09:48 | P.OP_ITS ---
Procedure Note - Detailed Date of Procedure 05/14/23 Pre-op Diagnosis left ureteral and renal stone Post-op Diagnosis Same Procedure Performed Cystoscopy, left retrograde pyelogram, left ureteroscopy with holmium laser, left ureteral stent placement 4.8 [place] contour Surgeon Larry Foster MD Anesthesia General Description of Procedure Patient is taken to the operative suite correctly identified. Once anesthesia was obtained she was placed in dorsal lithotomy position and prepped and draped usual sterile fashion. Nineteen [place] scope inserted in bladder. There were no tumors noted. A guidewire was placed into the left ureteral orifice. Rigid ureteral scope was then inserted into the left ureteral orifice. The distal and mid ureter showed no evidence of stones. I then placed a 2nd guidewire. Mini flexible ureteral scope was then inserted all the way up to the kidney. The only stones visualized were in the lower pole. These were fragments from her prior lithotripsy. Using a holmium laser we dusted these. It is a difficult location. No significant stone burden was noted. Pyelogram was then performed to confirm placement of a stent. 4.8 [place] contour stent was then placed with the proximal end coiled in the renal pelvis and the distal end in the bladder. Bladder was drained. 2% viscous lidocaine was inserted into the urethra patient is taken recovery stable condition. She will follow-up in 1 week's time for stent removal. Please send a copy of this op note to my office. This is dictation Estimated Blood Loss 0 Drains Yes Packing No Pathology None sent Complications No immediate complications Condition Stable Disposition PACU
[2023-05-14] MEDS: oxyCODONE HCL (*CRX) 5 MG TAB IR PO (11:06)
== END 2023-05-14 11:50 | disposition home or self-care (01) ==
PROVIDERS: PCP Emergency Medicine; Visit Provider Urology
PROC: (CPT 52352; principal; 2023-05-14 08:30)
DX: N20.1 Calculus of ureter (principal); Z79.891 Long term (current) use of opiate analgesic; Z87.891 Personal history of nicotine dependence; K21.9 Gastro-esophageal reflux disease without esophagitis; I10 Essential (primary) hypertension; M81.0 Age-related osteoporosis without current pathological fracture; E66.01 Morbid (severe) obesity due to excess calories; Z68.41 Body mass index [BMI] 40.0-44.9, adult; Z96.0 Presence of urogenital implants; Z87.442 Personal history of urinary calculi
CPT/HCPCS: 52356; 74420; 87086; 87147; 87186; A9270; C1758; C1769; C2617; J0690; J2250; J2704; J3010; J7120; Q9966

== ENCOUNTER 2023-06-25 10:00 | Outpatient (CLI) | payer MEDICARE, SELFPAY ==
--- NOTE | ~2023-06-25 | XR_ITS ---
XR abdomen/kub 1V 06/25/2023 10:26 Indication: Renal stones Procedure: KUB Comparison: Comparison to multiple prior studies sequentially, with oldest reviewed study dated 10/2022. Findings: Bowel gas pattern nonobstructive. Moderate colonic fecal loading. There are stones in the l ower pole of the left kidney partially obscured by bowel content. There is severe lumbar spondylosis with scoliosis. No acute osseous abnormality. There is right total hip arthroplasty. Impression: 1: Left nephrolithiasis. Reviewed, dictated and finalized at location L. [employer] Impression: 1: Left nephrolithiasis.
== END 2023-06-25 10:01 | disposition home or self-care (01) ==
PROVIDERS: PCP Emergency Medicine; Visit Provider Urology
DX: N20.0 Calculus of kidney (principal)
CPT/HCPCS: 74018

== ENCOUNTER 2023-07-26 02:10 | Day surgery (SDC) | payer MEDICARE, SELFPAY ==
[2023-07-09 14:12] VITALS: BMI 40.8
--- NOTE | 2023-07-24 08:49 | SUR.PREOP ---
Patient called regarding upcoming procedure. Message left on patient's voicemail regarding appointment times.
--- NOTE | 2023-07-25 09:36 | WPDANESEPPF ---
Anes - Initial Pre Proc Eval Procedure: Operation Date: 07/26/23 10:30 Proposed Procedures p Colonoscopy - Rajiv Nails MD Date/Time: 07/25/23 09:36 Surgeon: Rajiv Nails MD Pre Op Diagnosis: Other Fecal Abnormalities Patient Data Age: 73 Gender: F Height: 1.6 m Weight: 104.5 kg Allergies Allergy/AdvReac Type Severity Reaction Status Date / Time Penicillins Allergy Unknown Skin Verified 07/26/23 09:20 Reaction, ITCHING lisinopril AdvReac Severe COUGH Verified 07/26/23 09:20 Home Medications Medication Instructions Recorded Confirmed Type pyridoxine (vitamin B6) 100 mg 100 mg PO DAILY 11/13/19 07/09/23 History tablet cholecalciferol (vitamin D3) 50 50 mcg PO DAILY 11/22/20 07/09/23 History mcg (2,000 unit) capsule hydrocodone 5 mg-acetaminophen 325 1 tablet PO Q6H PRN pain #28 tabs 02/15/22 07/09/23 Rx mg tablet acetaminophen 650 mg 650 mg PO Q12H PRN Pain 06/04/22 07/09/23 History tablet,extended release (Pain Relief (acetaminophen)) ergocalciferol (vitamin D2) 1,250 1,250 mcg PO .COMPLEX 06/04/22 07/09/23 History mcg (50,000 unit) capsule ibandronate 150 mg tablet 150 mg PO MONTHLY 06/04/22 07/09/23 History krill 500 mg-omega-3 150 mg-dha 45 1 cap PO DAILY 03/25/23 07/09/23 History mg-epa 75 os-hjfdieg-pibzl capsule (krill oil) atenolol 50 mg-chlorthalidone 25 0.5 tablet PO DAILY 05/01/23 07/09/23 History mg tablet losartan 25 mg tablet 25 mg PO DAILY 05/01/23 07/09/23 History levothyroxine 50 mcg tablet 50 mcg PO QAM #90 tabs 05/15/23 07/26/23 Rx pantoprazole 40 mg tablet,delayed 40 mg PO DAILY #90 tabs 06/25/23 07/09/23 Rx release glucosamine-chondroitin 500 mg-400 1 tablet PO DAILY 07/09/23 07/09/23 History mg tablet Patient hx anesthesia problems: none Family hx anesthesia problems: none Results Review: All pre-operative results and documents have been reviewed as part of the pre-operative evaluation. [facility] Past Medical History Medical History (Updated 07/25/23 @ 09:37 by Kalin Dewey DO) Alcohol use Arthritis Back pain Bronchitis Cervical cancer Chronic, continuous use of opioids Former smoker GERD (gastroesophageal reflux disease) HTN (hypertension) Kidney stone Opiate use Osteoporosis Post-operative nausea and vomiting Rectal polyp UTI (urinary tract infection) Surgical History Surgical History (Updated 06/19/23 @ 10:40 by Ana Suarez MA) H/O arthroscopy of shoulder (~2006) left, Dr Bearden H/O lithotripsy History of bilateral knee replacement rt 08/2015, lt 02/2016 History of hysterectomy (~1989) History of left breast biopsy (~12/2004) History of total right hip arthroplasty (~03/2019) History of tubal ligation (~1983) Family History Family History Grandparent Diabetes mellitus Cerebrovascular accident Mother Hypertension Sibling Family history of gastrointestinal disorder Family history of malignant neoplasm of cervix Family history of malignant neoplasm of breast in first degree relative Other Family history of malignant neoplasm of esophagus Family history of malignant neoplasm of uterus Social History Social History Social History: caffeine-daily coffee Smoking packs per day: 1 Smoking cigarettes per day: 20.0 Years smoked: 7 Smoking pack-years: 7.00 Smoking status: Former smoker Tobacco type: cigarettes Second hand tobacco smoke exposure: No Smoking end date: 02/03/76 Alcohol intake: current Alcohol use details: occasional Substance use: never Substance use type: does not use Lack of Transportation: No Lack of Food: Never True Current Housing: I Have Housing Concerned About Future Housing: No Difficulty Paying Gas/Electric Bills: No Difficulty Paying for Meds: No Currently Unemployed: No Education: Asso
[2023-07-26 09:27] VITALS: BP 153/73; PULSE 66; RESP 20; TEMP 36.9; O2SAT 98
[2023-07-26] MEDS: LACTATED RINGERS 1,000 ML 150 ML IV CONT (09:44)
--- NOTE | 2023-07-26 10:32 | PM.HPGS ---
History of Present Illness History of Present Illness Consent: Risks, benefits, and alternatives have been discussed and questions answered. Patient agrees to proceed with procedure. Chief complaint: Change in bowel character Narrative: Mckenzie Walters is a 73 year old female referred for colonoscopy. She recently states she has difficulty straining his stools in stools may be somewhat thin. Patient has a very distant history of colon polyps. Most recent colonoscopy 2019 was unremarkable. Patient denies any bleeding. She has had no weight loss. Family history noncontributory. Patient has not tried any stool softeners nor laxatives. Referred for colonoscopy at this time. Review of Systems Review of Systems: Review of systems noncontributory. [facility] Past Medical History Medical History (Updated 07/25/23 @ 09:37 by Kalin Dewey DO) Alcohol use Arthritis Back pain Bronchitis Cervical cancer Chronic, continuous use of opioids Former smoker GERD (gastroesophageal reflux disease) HTN (hypertension) Kidney stone Opiate use Osteoporosis Post-operative nausea and vomiting Rectal polyp UTI (urinary tract infection) Surgical History Surgical History (Updated 06/19/23 @ 10:40 by Ana Suarez MA) H/O arthroscopy of shoulder (~2006) left, Dr Bearden H/O lithotripsy History of bilateral knee replacement rt 08/2015, lt 02/2016 History of hysterectomy (~1989) History of left breast biopsy (~12/2004) History of total right hip arthroplasty (~03/2019) History of tubal ligation (~1983) Family History Family History Grandparent Diabetes mellitus Cerebrovascular accident Mother Hypertension Sibling Family history of gastrointestinal disorder Family history of malignant neoplasm of cervix Family history of malignant neoplasm of breast in first degree relative Other Family history of malignant neoplasm of esophagus Family history of malignant neoplasm of uterus Social History Social History Social History: caffeine-daily coffee Smoking packs per day: 1 Smoking cigarettes per day: 20.0 Years smoked: 7 Smoking pack-years: 7.00 Smoking status: Former smoker Tobacco type: cigarettes Second hand tobacco smoke exposure: No Smoking end date: 02/03/76 Alcohol intake: current Alcohol use details: occasional Substance use: never Substance use type: does not use Lack of Transportation: No Lack of Food: Never True Current Housing: I Have Housing Concerned About Future Housing: No Difficulty Paying Gas/Electric Bills: No Difficulty Paying for Meds: No Currently Unemployed: No Education: Associate Degree Difficulty w/ Childcare or Family Care: No Living arrangements: with family Spiritual care concerns: No Meds Home Medications and Allergies Home Medications Medication Instructions Recorded Confirmed Type pyridoxine (vitamin B6) 100 mg 100 mg PO DAILY 11/13/19 07/09/23 History tablet cholecalciferol (vitamin D3) 50 50 mcg PO DAILY 11/22/20 07/09/23 History mcg (2,000 unit) capsule hydrocodone 5 mg-acetaminophen 325 1 tablet PO Q6H PRN pain #28 tabs 02/15/22 07/09/23 Rx mg tablet acetaminophen 650 mg 650 mg PO Q12H PRN Pain 06/04/22 07/09/23 History tablet,extended release (Pain Relief (acetaminophen)) ergocalciferol (vitamin D2) 1,250 1,250 mcg PO .COMPLEX 06/04/22 07/09/23 History mcg (50,000 unit) capsule ibandronate 150 mg tablet 150 mg PO MONTHLY 06/04/22 07/09/23 History krill 500 mg-omega-3 150 mg-dha 45 1 cap PO DAILY 03/25/23 07/09/23 History mg-epa 75 ab-gudetpi-todaf capsule (krill oil) atenolol 50 mg-chlorthalidone 25 0.5 tablet PO DAILY 05/01/23 07/09/23 History mg tablet losartan 25 mg tablet 25 mg PO DAILY 05/01/23 07/09/23 History levothyroxine 50 mcg tablet 50 mcg PO QA
[2023-07-26 11:00] VITALS: BP 106/35; PULSE 60; RESP 18; O2SAT 97
[2023-07-26 11:10] VITALS: BP 122/62; PULSE 56; RESP 26; O2SAT 100
[2023-07-26 11:20] VITALS: BP 130/65; PULSE 57; RESP 20; O2SAT 100
== END 2023-07-26 11:38 | disposition home or self-care (01) ==
PROVIDERS: PCP Emergency Medicine; Visit Provider Internal Medicine Gastroenterology
PROC: 0DJD8ZZ Inspection of Lower Intestinal Tract, Via Natural or Artificial Opening Endoscopic (ICD-10-PCS; CPT 45378; principal; 2023-07-26 10:30)
DX: R19.5 Other fecal abnormalities (principal); K64.8 Other hemorrhoids; Z86.010 Personal history of colon polyps; I10 Essential (primary) hypertension; K21.9 Gastro-esophageal reflux disease without esophagitis; M81.0 Age-related osteoporosis without current pathological fracture; Z87.891 Personal history of nicotine dependence; Z85.41 Personal history of malignant neoplasm of cervix uteri; Z79.891 Long term (current) use of opiate analgesic; E66.01 Morbid (severe) obesity due to excess calories; Z68.39 Body mass index [BMI] 39.0-39.9, adult
CPT/HCPCS: 45378; J2704; J7120

== ENCOUNTER 2024-06-25 16:40 | Outpatient (CLI) | payer MEDICARE, SELFPAY ==
--- NOTE | ~2024-06-25 | XR_ITS ---
EXAMINATION: XR abdomen/kub 1V DATE: 06/25/2024 17:01 INDICATION: Calcium kidney stone. TECHNIQUE: A supine view of the abdomen on 2 radiographs was obtained. COMPARISON: Abdomen radiographs 06/25/2023, CT abdomen and pelvis 03/04/2023 FINDINGS: There are no dilated loops of bowel. The kidneys are obscured by bowel. There is a cluster of stones measuring up to 12 mm in left kidney lower pole. There are phleboliths in the pelvis. There is a total right hip arthroplasty. IMPRESSION: 1. Left kidney stones. Reviewed, dictated and finalized at location A. RAGE INSPECTION MACHINE TENDER IMPRESSION: 1. Left kidney stones.
== END 2024-06-25 16:41 | disposition home or self-care (01) ==
PROVIDERS: PCP Family Medicine; Visit Provider Urology
DX: N20.0 Calculus of kidney (principal)
CPT/HCPCS: 74018

== ENCOUNTER 2025-07-23 02:33 | Day surgery (SDC) | payer MEDICARE, SELFPAY ==
[2025-07-06 13:39] VITALS: BMI 42.7
--- OUTSIDE RECORDS SUMMARY | 2025-07-23 02:40 | XMS_ITS | Clinical Summary ---
Author Organization [facility] Address [address] [place] [address] Care Team Providers Care President And Chief Operating Officer Name Role Phone Rachel Avila MD Unavailable [phone] Martina Damon MD Primary Care Provider + Allergies Active Allergy Reactions Criticality Noted Date Comments Lisinopril Cough Low 01/24/2016 Penicillins Itching Low Medications pantoprazole DR (PROTONIX) 40 mg EC tablet Take 1 tablet (40 mg total) by mouth every morning 8 Active losartan (COZAAR) 25 mg tablet Take 1 tablet (25 mg total) by mouth daily after lunch 8 Active SYNTHROID 50 mcg tablet Take 1 tablet (50 mcg total) by mouth advertising rep before breakfast 8 Active atenolol-chlort halidone (TENORETIC) 50-25 mg per tablet Take 0.5 tablets by mouth every morning 8 Active cholecalciferol (VITAMIN D3) 2,000 unit capsule Take 1 capsule (2,000 Units total) by mouth daily after lunch 9 Active pyridoxine (VITAMIN B-6) 100 mg tablet Take 1 tablet (100 mg total) by mouth daily after lunch Active ergocalciferol (VITAMIN D2) 50,000 unit capsuleIndicati ons:Osteoporosi s,Vitamin D Deficiency Take 1 capsule (50,000 Units total) by mouth once a week saturday Active multivitamin-mi nerals-lutein (MULTIVITAMIN 50 PLUS) tablet Acti ve yddme-ai-9-dha- eng-sezdhlw-kem (MEGARED OMEGA-3 KRILL OIL) [id number] mg capsule Active glucosam-chondr oitin-diet cb25 116-100 mg capsule Active ibandronate (BONIVA) 150 mg tablet 2 Active Active Problems Problem Noted Date Diagnosed Date PONV (postoperative nausea and vomiting) 019 Hiatal hernia 03/28/2019 Diastolic dysfunction 03/28/2019 HTN (hypertension) 03/27/2019 GERD (gastroesophageal reflux disease) 9 Hypothyroidism 03/27/2019 Class 3 severe obesity in adult 03/27/2019 Stasis dermatitis 02/13/2019 Assessment & Plan (02/13/2019 3:56 PM CDT): Impression: Patient recovering status post bilateral lower extremity stasis dermatitis. She had recent hospitalization with intravenous antibiotic therapy and also and oral antibiotic course. Her symptoms have since resolved. Plan: Recommended daily compression therapy with Tubigrip and Srinivas wraps and leg elevation p.r.n.. Patient follow-up in 2-3 months for re-evaluation. Recommended more formal venous evaluation with lower extremity venous duplex Primary osteoarthritis of right hip 10/06/2018 Overview (10/06/2018): Added automatically from request for surgery [id number] Resolved Problems Problem Noted Date Diagnosed Date Resolved Date Edema of both lower extremities 02/13/2019 03/27/2019 Assessment & Plan (02/13/2019 3:56 PM CDT): Impression: Persistent bilateral lower extremity edema which is multifactorial with differential diagnoses including morbid obesity, chronic venous insufficiency and lymphedema. Plan: Recommended daily compression therapy with Tubigrip and Srinivas wraps and leg elevation p.r.n.. Patient follow-up in 2-3 months for re-evaluation. Recommended more formal venous evaluation with lower extremity venous duplex Osteoarthritis of knee 11/25/201503/27 Immunizations Immunization Administration Dates Next Due Influenza, Quadrivalent, Rec ombinant, Egg Free, Preservative Free, Intramuscular 05/11/2019 Influenza, Quadrivalent, Spl it, Preservative Free, Intramuscular 05/20/2018 Surgical History Surgery Date Site/Laterality Comments JOINT REPLACEMENT 08/05/2015 - 08/04/2016 Bilateral TKA FOOT SURGERY 08/05/1978 - 08/04/1979 Left bone chip removed DILATION AND CURETTAGE OF UTERUS 1978; 1989 and cone biopsy TUBAL LIGATION 08/05/1983 - 08/04/1984 BREAST SURGERY 08/05/2004 - 08/04/2005 Left breast biopsy ROTATOR CUFF REPAIR 08/05/2006 - 08/04/2007 Left ERCP 01/03/2018 - 02/01/2018 Left KIDNEY STONE SURGERY 02/02/2018 - 03/04/2018 3 kidney stones removed HIP SURGERY 03/31/2019 Right HYSTERECTOMY 08/05/1989 - 08/04/1990 BREAST BIOPSY Left benign FL FLUORO GUIDED INJECTION HIP LEFT 02/10/2025 Left Medical History Medical History Date Comments HTN (hypertension) GERD (gastroesophageal reflux disease) Hiatal hernia History of cervical cancer Hypothyroidism Osteoarthritis Morbid obesity (HCC) Cellulitis of right leg PONV (postoperative nausea and vomiting) does not require scope patch Osteoporosis Cataract Chronic kidney disease Kidney stone Family History Medical History Relation Name Comments Cancer Brother Jese Hypertension Brother Jese Arthritis Daughter Meron Arthritis Maternal Grandmother Joleen Heart disease Maternal Grandmother Joleen Miscarriages / Stillbirths Maternal Grandmother Joleen Stroke Maternal Grandmother Joleen Arthritis Mother Claudia COPD Mother Claudia Heart disease Mother Claudia Heart failure Mother Claudia Hypertension Mother Claudia Arthritis Mother's Sister Bethanie Cancer Mother's Sister Bethanie Arthritis Paternal Grandfather Fern Diabetes Paternal Grandfather Fern Arthritis Paternal Grandmother Liliana Breast cancer Sister 1 Cancer Sister 2 Juany Cancer Sister 3 Radha Anesthesia problems Neg Hx Relation Name Status Comments Brother Jese Daughter Meron Maternal Grandmother Joleen Mother Claudia Mother's Sister [place] Paternal Grandfather Fern Paternal Grandmother Liliana Sister 1 Sister 2 Juany Sister 3 Radha Social History Tobacco Use Types Packs/Day Years Used Date Smoking Tobacco: Former Cigarettes 1 8 1 968 - 1975 Smokeless Tobacco: Never Tobacco Cessation:Counseling Given: Not Answered Comments:No longer smoking Alcohol Use Standard Drinks/Week Comments Yes 0 (1 standard drink = 0.6 oz pur e alcohol) rare Comments No Sex and Gender Information Value Date Recorded Sex Assigned at Not on file Legal Sex Female 12:56 AM V/STOL 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 Gender Identity Not on file Sexual Orientation Not on file Obstetrics History Para Term AB IAB SAB Ectopic Multiple Livin g Live Births 3 2 2 Date Outcome GA Total Labor Labor/2nd/3rd Weight Sex Type Anes PTL Cindy A1 A5 Name Clin Term Term Last Filed Vital Signs Vital Sign Reading Time Taken Comments Blood Pressure 147/87 02/10/2025 3:41 PM CDT Pulse 61 02/10/2025 3:41 PM CDT Temperature 36.8 C (98.2 F) 04/01/2019 3:36 PM CDT Respiratory Rate 16 02/10/2025 3:41 PM CDT Oxygen Saturation 94% 04/01/2019 3:36 PM CDT Inhaled Oxygen Concentration - - Weight 109.4 kg (241 lb 3.2 oz) 024 10:21 AM CDT Height 160.5 cm (5' 3.19) 02/13/2024 1 0:21 AM CDT Body Mass Index 42.47 02/13/2024 10:21 AM CDT Plan of Treatment Health Maintenance Due Date Last Done Comments Colon Cancer Screening-Colonoscopy 1950 Depression Screening 1951 Fall Risk Assessment 1950 Hepatitis C Screening 1950 DTaP/Tdap/Td Vaccine (1 - Tdap) 1962 Hepatitis B Screening 1969 Pneumococcal vaccine 65+ (1 of 1 - PCV) 2001 Zoster Vaccine (1 of 2) 2001 Well Visit 65+ 2016 Influenza Vaccine (#1) 2025 4, 05/11/2019, 05/20/2018 Breast Cancer Screening-Mammogram 10/01/2025 10/01/2024, 09/30/2023, 09/27/2022, Additional history exists Osteoporosis Screening-Bone Density Scan 03/03/2026 03/03/2024, 02/27/2022, 02/02/2020, Additional history exists Medical Devices Implanted Type Area Campus Wellness Coordinator Device Identifier Shelf Expiration Date Model / Serial / Lot [employer] [id number] [place] 52mm Sector Hip Shell Acetabular Gription Sterile Latex Free - [id number] Implanted:Qty: 1 on 03/31/2019 by David Ruiz MD at [facility] Right: Hip [employer] [id number] 02/01/2029 [id number] / / [id number] [employer] [id number] [place] 52mm 36mm Hip Neutral Liner Acetabular Altrx Sterile Latex Free - [id number] Implanted:Qty: 1 on 03/31/2019 by David Ruiz MD at [facility] Right: Hip [employer] [id number] 01/03/2024 [id number] / / [id number] [employer] [id number] [place] 6.5mm 40mm Acetabular Cancellous Screw Bone Sterile - [id number] Implanted:Qty: 1 on 03/31/2019 by David Ruiz MD at [facility] Right: Hip [employer] [id number] 09/04/2028 [id number] / / [id number] [employer] [id number] Actis Collar Hip 8 Standard Offset Stem Femoral - [id number] Implanted:Qty: 1 on 03/31/2019 by David Ruiz MD at [facility] Right: Hip [employer] [id number] 02/01/2029 [id number] / / [id number] [employer] [id number] Articul/Igor 36mm Cementless Hip +1.5mm 12/14 Taper Head Femoral Latex Free - [id number] Implanted:Qty: 1 on 03/31/2019 by David Ruiz MD at [facility] Right: Hip [employer] [id number] 02/02/2024 [id number] / / [id number] Procedures Procedure Name Priority Date/Time Associated Diagnosis Comments SCREENING MAMMOGRAM BILATERAL W ANKUR Schedule Routine, Read Routine (OP Routine) 10/01/2024 11:22 AM V/STOL 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 OFFICER Screening mammogram, encounter for DEXA AXIAL SKELETON BONE DENSITY 1 OR MORE SITES Schedule Routine, Read Routine (OP Routine) 03/03/2024 10:59 AM CDT Asymptomatic menopausal state from Last 3 Months or Most Recently Relevant to Health Maintenance Results * Screening Mammogram Bilateral W Ankur (10/01/2024 11:22 AM V/STOL 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 OFFICER) Anatomical Region Laterality Modality Breast Bilateral Mammography Impressions 10/01/2024 11:53 AM V/STOL 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 OFFICER BI-RADS ATLAS category (overall): 2 - Benign There is no mammographic evidence of malignancy. A 1 year screening mammogram is recommended. The patient has been or will be contacted. We recommend annual screening mammography for women at average risk of breast cancer beginning at age 40, based on guidelines of the [place] [employer] (ACR Practice Parameter for the Performance of Screening and Diagnostic Mammography) and [place] [employer]. For women with and elevated risk of breast cancer, please refer to the ACR Practice Parameter for specific screening recommendations. The patient will be entered into a reminder system with a target due date of 1 year for her next screening exam. Narrative 10/01/2024 11:53 AM V/STOL 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 OFFICER Screening Mammogram Bilateral W Ankur: 10/01/24 The study was acquired using full field digital technology and interpreted from soft copy. 2D digital mammographic views, as well as 3D digital tomosynthesis were performed in the CC and MLO projections. CLINICAL: Screening mammogram, encounter for No relevant medical history has been documented for this patient. History of breast cancer in Sister. COMPARISONS: 09/30/2023 Screening Mammogram Bilateral W Ankur 09/27/2022 Screening Mammogram Bilateral W Ankur 09/25/2021 Screening Mammogram Bilateral W Ankur 09/16/2020 Screening Mammogram Bilateral W Ankur 09/02/2019 Screening Mammogram Bilateral W Ankur BREAST TISSUE: There are scattered areas of fibroglandular density. FINDINGS: There are benign scattered calcifications in both breasts. There is a biopsy clip in the left breast. There is no new suspicious finding in either breast on mammogram. 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 LEFT HIP: Total BMD is 0.776 g/cm2 T-score is -1.4 This is increased in comparison to prior exam which is statistically significant. Femoral neck BMD is 0.686 g/cm2 T-score is -1.5 FRAX: 10 year risk for a major osteoporotic fracture is 9.1 %, 10 year risk for a hip fracture is 1.3 % IMPRESSION: Low Bone Mass. REFERENCE: Bone mineral density: T-Score: Normal (T-score above or = -1.0) Low bone mass (T-score between -1.0 and -2.5) replaces the previously used term osteopenia Osteoporosis (T-score = or below -2.5) Z-Score: Within the expected range for age (Z-score above -2.0) Below the expected range for age (Z-score is -2.0 or below) Please see below follow up recommendations. Medical evaluation for secondary causes of low bone mineral density may be appropriate. FRAX is a World Health Organization validated fracture risk assessment tool that calculates a person's 10 year probability of a major osteoporosis related fracture and hip fracture. According to the National Osteoporosis Foundation guidelines, postmenopausal women and men age 50 or older with low bone mass and a 10 year probability of a major osteoporosis related fracture = or greater than 20% or a 10 year probability of a hip fracture = or greater than 3% should be considered for pharmacological treatment for the prevention of osteoporosis. For further information, including treatment recommendations, please refer to the 2019 ISCD Official Positions (http://www.iscd.org) and the NOF's Clinician's Guide to Prevention and Treatment of Osteoporosis (http://www.nof.org/professionals/clinical-guidelines) THIS IS AN ELECTRONICALLY VERIFIED FINAL REPORT 03/03/2024 4:06 PM - Electronically signed by Eitan Rankin M.D. 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 LEFT HIP: Total BMD is 0.776 g/cm2 T-score is -1.4 This is increased in comparison to prior exam which is statistically significant. Femoral neck BMD is 0.686 g/cm2 T-score is -1.5 FRAX: 10 year risk for a major osteoporotic fracture is 9.1 %, 10 year risk fora hip fracture is 1.3 % IMPRESSION: Low Bone Mass. REFERENCE: Bone mineral density: T-Score: Normal (T-score above or = -1.0) Low bone mass (T-score between -1.0 and -2.5) replaces thepreviously used term osteopenia Osteoporosis (T-score = or below -2.5) Z-Score: Within the expected range for age (Z-score above -2.0) Below the expected range for age (Z-score is -2.0 or below) Please see below follow up recommendations. Medical evaluation forsecondary causes of low bone mineral density may be appropriate. FRAX is a World Health Organization validated fracture risk assessmenttool that calculates a person's 10 year probability of a major osteoporosisrelated fracture and hip fracture. According to the National OsteoporosisFoundation guidelines, postmenopausal women and men age 50 or older with low bonemass and a 10 year probability of a major osteoporosis related fracture = or greater than 20% or a 10 year probability of a hip fracture = or greaterthan 3% should be considered for pharmacological treatment for the preventionof osteoporosis. For further information, including treatment recommendations, please referto the 2019 ISCD Official Positions (http://www.iscd.org) and the NOF's Clinician's Guide to Prevention and Treatment of Osteoporosis (http://www.nof.org/professionals/clinical-guidelines) THIS IS AN ELECTRONICALLY VERIFIED FINAL REPORT 03/03/2024 4:06 PM - Electronically signed by Eitan Rankin M.D. MF: [email or web address] Report ID: [id number] Reading Location: [place] [address] Rachel Avila MD IMG DXA PROCEDURES Final Result from Last 3 Months or Most Recently Relevant to Health Maintenance Insurance [employer] MEDICARE [facility] Address: [facility] [address] [place] [address] [facility] MEDICARE [facility] MEDICARE [facility] Address: [address] [address] [place] [address] Advance Directives For more information, please contact: [phone] Documents on File Type Date Recorded Patient Resistance Machine Welder Setter Expl anation ADVANCE DIRECTIVE 02/12/2019 Power of A ttorney-Medical * Full Code (Latest Code Status on File) Date Activated Date Inactivated Comments 03/31/2019 2:42 PM 04/01/2019 10:56 PM Care Teams President And Chief Operating Officer Relationship Specialty Start Date End Date Martina Damon MD [address] [facility] [place] [address] PCP - General Family Medicine 09/18/24 Rachel Avila MD [address] [address] Referring Physician Gynecology 11/08/23
[2025-07-23 09:21] VITALS: BP 148/80; PULSE 56; RESP 18; TEMP 36.5; O2SAT 100; BMI 43.3
--- NOTE | 2025-07-23 09:45 | WPDANESEPPF ---
Anes - Initial Pre Proc Eval Procedure: Operation Date: 07/23/25 10:30 Proposed Procedures p Esophagogastroduodenoscopy - Jt Hardy MD Date/Time: 07/23/25 09:45 Surgeon: Jt Hardy MD Pre Op Diagnosis: Gastro-esophageal reflux disease without esophagit Patient Data Age: 75 Gender: F Height: 1.6 m Weight: 111 kg Last Vital Signs Temp 97.7 F 07/23/25 09:21 Pulse 56 L 07/23/25 09:21 Resp 18 07/23/25 09:21 BP 148/80 H 07/23/25 09:21 Pulse Ox 100 07/23/25 09:21 O2 Del Method Room Air 07/23/25 09:21 Allergies Allergy/AdvReac Type Severity Reaction Status Date / Time Penicillins Allergy Unknown Skin Verified 07/23/25 09:19 Reaction, ITCHING lisinopril AdvReac Severe COUGH Verified 07/23/25 09:19 Home Medications ?Medication ?Instructions ?Recorded ?Confirmed ?Type pyridoxine (vitamin B6) 100 mg 100 mg PO DAILY 11/13/19 07/23/25 History tablet cholecalciferol (vitamin D3) 50 50 mcg PO DAILY 11/22/20 07/23/25 History mcg (2,000 unit) capsule hydrocodone 5 mg-acetaminophen 325 1 tablet PO Q6H PRN pain #28 tabs 02/15/22 07/06/25 Rx mg tablet acetaminophen 650 mg 650 mg PO Q12H PRN Pain 06/04/22 07/06/25 History tablet,extended release (Pain Relief (acetaminophen)) ergocalciferol (vitamin D2) 1,250 1,250 mcg PO .COMPLEX 06/04/22 07/06/25 History mcg (50,000 unit) capsule krill 500 mg-omega-3 150 mg-dha 45 1 cap PO DAILY 03/25/23 07/23/25 History mg-epa 75 [id number] capsule (krill oil) glucosamine-chondroitin 500 mg-400 1 tablet PO DAILY 07/09/23 07/23/25 History mg tablet pantoprazole 40 mg tablet,delayed 40 mg PO DAILY #90 tabs 04/22/24 07/23/25 Rx release ibandronate 150 mg tablet 150 mg PO MONTHLY 06/25/24 07/23/25 History fluticasone propionate 50 2 spray intranasal DAILY PRN 12/22/24 07/06/25 Rx mcg/actuation nasal allergy symptoms #16 mL spray,suspension (Flonase Allergy Relief) atenolol 50 mg-chlorthalidone 25 0.5 tablet PO DAILY #45 tabs 04/29/25 07/23/25 Rx mg tablet losartan 25 mg tablet 25 mg PO DAILY #90 tabs 04/29/25 07/23/25 Rx levothyroxine 50 mcg tablet See Rx Instructions .Route 07/16/25 Rx .COMPLEX #90 tabs Patient hx anesthesia problems: none Family hx anesthesia problems: none Results Review: All pre-operative results and documents have been reviewed as part of the pre-operative evaluation. [facility], LAT[facility] Past Medical History Medical History Abnormal colonoscopy S/P extracorporeal shock wave therapy Chronic, continuous use of opioids Post-operative nausea and vomiting Cervical cancer Former smoker Alcohol use Opiate use Back pain Osteoporosis Arthritis UTI (urinary tract infection) Kidney stone GERD (gastroesophageal reflux disease) Rectal polyp Bronchitis HTN (hypertension) Surgical History Surgical History H/O ureteroscopy H/O lithotripsy History of left breast biopsy (~12/2004) History of total right hip arthroplasty (~03/2019) History of bilateral knee replacement rt 08/2015, lt 02/2016 History of tubal ligation (~1983) History of hysterectomy (~1989) H/O arthroscopy of shoulder (~2006) left, Dr Bearden Family History Family History Grandparent Diabetes mellitus Cerebrovascular accident Mother Hypertension Sibling Family history of gastrointestinal disorder Family history of malignant neoplasm of cervix Family history of malignant neoplasm of breast in first degree relative Other Family history of malignant neoplasm of esophagus Family history of malignant neoplasm of uterus Social History Social History Social History: caffeine-daily coffee Smoking packs per day: 1 Smoking cigarettes per day: 20.0 Years smoked: 10 Smoking pack-years: 10.00 Smoking status: Former smoker Tobacco type: cigarettes Second hand tobacco smoke exposure: No Smoking end date: 02/03/76 Alcohol intake: never Alcohol use details: occasional Substance use: never Substance use type: does not use Lack of Transportation: No Lack of Food: Never True Current Housing: I Have Housing Concerned About Future Housing: No Difficulty Paying Gas/Electric Bills: No Difficulty Paying for Meds: No Currently Unemployed: No Education: Associate Degree Difficulty w/ Childcare or Family Care: No Living arrangements: alone Spiritual care concerns: No Anes - Eval Final PreProcedure Day of Procedure 07/23/25 09:45 Patient weight: morbidly obese Lungs: normal air movement Airway: Mallampati scale class II Neurological: alert and oriented Last oral intake: >/= 8 hours ASA classification: III Emergent: no Anesthetic plan: proceed Anesthesia type and monitoring: general GIVS Results Review: All pre-operative results and documents have been reviewed as part of the pre-operative evaluation. BMI 43, HTN, hypothyroidism, GERD, despite PPI. Pt can walk short distances, no cp or sob. Informed Consent: The patient's anesthetic plan and its attendant risks and benefits were discussed with the patient/family/POA. Questions were solicited and answers provided to the satisfaction of the patient/family/POA.
[2025-07-23] MEDS: LACTATED RINGERS 1,000 ML 150 ML IV CONT (10:05)
[2025-07-23] MEDS: SIMETHICONE ORAL SUSPENSION 20 MG/0.3 ML 30 ML BOTTLE 1.8 ML PO (10:06)
--- NOTE | 2025-07-23 10:19 | P.HP_ITS ---
H&P: HPI History of Present Illness Date/Time: 07/23/25 10:19 Chief Complaint: GERD Narrative: This patient suffers from GERD for several years. Partially controlled with pantoprazole which she takes once a day. She has occasional dysphagia, describing choking with her own saliva. But she can swallow solid food normally. There is no unintentional weight loss, nausea vomiting. Her grandmother from the paternal side of esophageal cancer. Her last EGD was 5 years ago finding erosive esophagitis and a hiatal hernia. Review of Systems Review of Systems: All systems reviewed & are unremarkable except as noted in HPI and below [facility] Past Medical History Medical History Abnormal colonoscopy S/P extracorporeal shock wave therapy Chronic, continuous use of opioids Post-operative nausea and vomiting Cervical cancer Former smoker Alcohol use Opiate use Back pain Osteoporosis Arthritis UTI (urinary tract infection) Kidney stone GERD (gastroesophageal reflux disease) Rectal polyp Bronchitis HTN (hypertension) Surgical History Surgical History H/O ureteroscopy H/O lithotripsy History of left breast biopsy (~12/2004) History of total right hip arthroplasty (~03/2019) History of bilateral knee replacement rt 08/2015, lt 02/2016 History of tubal ligation (~1983) History of hysterectomy (~1989) H/O arthroscopy of shoulder (~2006) left, Dr Bearden Family History Family History Grandparent Diabetes mellitus Cerebrovascular accident Mother Hypertension Sibling Family history of gastrointestinal disorder Family history of malignant neoplasm of cervix Family history of malignant neoplasm of breast in first degree relative Other Family history of malignant neoplasm of esophagus Family history of malignant neoplasm of uterus Social History Social History Social History: caffeine-daily coffee Smoking packs per day: 1 Smoking cigarettes per day: 20.0 Years smoked: 10 Smoking pack-years: 10.00 Smoking status: Former smoker Tobacco type: cigarettes Second hand tobacco smoke exposure: No Smoking end date: 02/03/76 Alcohol intake: never Alcohol use details: occasional Substance use: never Substance use type: does not use Lack of Transportation: No Lack of Food: Never True Current Housing: I Have Housing Concerned About Future Housing: No Difficulty Paying Gas/Electric Bills: No Difficulty Paying for Meds: No Currently Unemployed: No Education: Associate Degree Difficulty w/ Childcare or Family Care: No Living arrangements: alone Spiritual care concerns: No Meds Home Medications and Allergies Home Medications ?Medication ?Instructions ?Recorded ?Confirmed ?Type pyridoxine (vitamin B6) 100 mg 100 mg PO DAILY 0 07/23/25 History tablet cholecalciferol (vitamin D3) 50 50 mcg PO DAILY 07/23/25 History mcg (2,000 unit) capsule hydrocodone 5 mg-acetaminophen 325 1 tablet PO Q6H PRN pain #28 tabs 02/15/22 07/06/25 Rx mg tablet acetaminophen 650 mg 650 mg PO Q12H PRN Pain 05/0707/06/25 History tablet,extended release (Pain Relief (acetaminophen)) ergocalciferol (vitamin D2) 1,250 1,250 mcg PO .COMPLE X 06/04/22 07/06/25 History mcg (50,000 unit) capsule krill 500 mg-omega-3 150 mg-dha 45 1 cap PO DAILY 03/0607/23/25 History mg-epa 75 [id number]-[id number]-[id number] capsule (krill oil) glucosamine-chondroitin 500 mg-400 1 tablet PO DAILY 1 09/09/22 07/23/25 History mg tablet pantoprazole 40 mg tablet,delayed 40 mg PO DAILY #90 t abs 04/22/24 07/23/25 Rx release ibandronate 150 mg tablet 150 mg PO MONTHLY 06/25/24 1 09/23/24 History fluticasone propionate 50 2 spray intranasal DAILY PRN 12/22/24 07/06/25 Rx mcg/actuation nasal allergy symptoms #16 mL spray,suspension (Flonase Allergy Relief) atenolol 50 mg-chlorthalidone 25 0.5 tablet PO DAILY # 45 tabs 04/29/25 07/23/25 Rx mg tablet losartan 25 mg tablet 25 mg PO DAILY #90 tabs 04/0607/23/25 Rx levothyroxine 50 mcg tablet See Rx Instructions .Route 07/16/25 Rx .COMPLEX #90 tabs Allergies Allergy/AdvReac Type Severity Reaction Status Date / Time Penicillins Allergy Unknown Skin Verified 07/23/25 09:19 Reaction, ITCHING lisinopril AdvReac Severe COUGH Verified 07/23/25 09:19 Vital Signs Vital Signs - 24 hr 07/23/25 09:21 Temperature 97.7 F Pulse Rate 56 L Respiratory Rate 18 Blood Pressure 148/80 H Pulse Oximetry 100 Oxygen Delivery Room Air Exam Const: General: cooperative and healthy appearing Resp: Effort & Inspection: normal respiratory effort and able to speak in complete sentences Auscultation: clear to auscultation bilaterally Cardio: Rate: regular rate Rhythm: regular rhythm GI: Inspection: normal to inspection GI Palp: No No hepatosplenomegaly present Auscultation: normal bowel sounds Rectal Exam: deferred Skin: General skin exam: normal color Psych: Appearance: grossly normal Mental Status: mental status grossly normal Assessment and Plan Assessment and plan (1) Gastro-esophageal reflux disease without esophagitis: Code(s): K21.9 - Gastro-esophageal reflux disease without esophagitis Status: Acute Assessment and Plan: The patient is deemed a good candidate for the procedure. Consent signed. Will proceed.
[2025-07-23 10:39] VITALS: BP 129/69; PULSE 56; RESP 20; O2SAT 96
--- NOTE | 2025-07-23 10:40 | S_PTH ---
PATIENT: Mckenzie Walters LOC: [facility] U#:[id number] AGE/SX: 75/F ROOM: RE07/23/[address]: Jt Hardy MD : 1950 BED: DIS: 07/23/2025 SPEC #: [id number] RECD: 07/23/25 11:38 STATUS: EDY REQ #: [id number] BRAIN: 07/23/25 10:[address]: Jt Hardy DEPT: [facility] Surgical RECD BY: Tiffany Morel ENTERED: 07/23/25 11:38 SP TYPE: Surgical OTHR DR: Teri Knox, KATHRIN Tissues: A - Biopsy B - Biopsy Procedures: Hematoxylin and Eosin Stain Gross and Microscopic Level 4
[2025-07-23 10:49] VITALS: BP 134/76; PULSE 55; RESP 18; O2SAT 98
[2025-07-23 10:59] VITALS: BP 138/82; PULSE 56; RESP 18; O2SAT 100
== END 2025-07-23 11:29 | disposition home or self-care (01) ==
PROVIDERS: PCP Nurse Practitioner Family; Referring Provider Nurse Practitioner Family; Visit Provider Internal Medicine Gastroenterology
PROC: 0DJ08ZZ Inspection of Upper Intestinal Tract, Via Natural or Artificial Opening Endoscopic (ICD-10-PCS; CPT 43239; principal; 2025-07-23 10:30)
DX: K21.00 Gastro-esophageal reflux disease with esophagitis, without bleeding (principal); K44.9 Diaphragmatic hernia without obstruction or gangrene; K31.7 Polyp of stomach and duodenum; K29.70 Gastritis, unspecified, without bleeding; I10 Essential (primary) hypertension; E03.9 Hypothyroidism, unspecified; M81.0 Age-related osteoporosis without current pathological fracture; M19.90 Unspecified osteoarthritis, unspecified site; E66.01 Morbid (severe) obesity due to excess calories; Z68.41 Body mass index [BMI] 40.0-44.9, adult; Z79.891 Long term (current) use of opiate analgesic; Z79.83 Long term (current) use of bisphosphonates; Z98.890 Other specified postprocedural states; Z98.51 Tubal ligation status; Z87.891 Personal history of nicotine dependence; Z86.0100 Personal history of colon polyps, unspecified; Z85.41 Personal history of malignant neoplasm of cervix uteri; Z80.49 Family history of malignant neoplasm of other genital organs; Z80.3 Family history of malignant neoplasm of breast; Z80.0 Family history of malignant neoplasm of digestive organs
CPT/HCPCS: 43239; 88305; J2003; J2704; J7120